=== PATIENT | female | born 1955 | race Two or more races ===

== ENCOUNTER 2019-06-23 08:27 | Inpatient (IN) | payer OTHER ==
[~2019-06-23] VITALS: Ht 172.7 cm; Wt 108.9 kg
[2019-06-23] MEDS ORDERED: MIDAZOLAM HCL 2 MG/2ML VIAL ONE (09:56)
[2019-06-23] MEDS ORDERED: FENTANYL PF 250MCG/5ML AMPUL ONE (09:57)
[2019-06-23] MEDS ORDERED: FENTANYL PF 100MCG/2ML AMPUL ONE (09:58)
[2019-06-23] MEDS ORDERED: HYDROMORPHONE INJ 2 MG/ML DISP.SYRIN ONE (09:59)
[2019-06-23] MEDS ORDERED: FAMOTIDINE/PF INJ 20 MG/2 ML VIAL IV ONE (10:00)
[2019-06-23] MEDS ORDERED: SUCCINYLCHOLINE CHLORIDE 20 MG/ML VIAL ONE (10:00)
[2019-06-23] MEDS ORDERED: ROCURONIUM BROMIDE 50 MG/5 ML ONE (10:01)
[2019-06-23] MEDS ORDERED: HEPARIN SODIUM, PORCINE 5000 UNITS/1 ML VIAL ONE (10:26)
[2019-06-23] MEDS ORDERED: BACITRACIN 50000 UNITS/VIAL ONE ×2 (10:27→14:01)
[2019-06-23] MEDS ORDERED: GELATIN SPONGE,ABSORBABLE 1 EA SPONGE TP ONE (10:27)
[2019-06-23] MEDS ORDERED: ANESTHESIA TRAY IN PYXIS 1 EA TRAY MC ONE (10:27)
[2019-06-23] MEDS ORDERED: HEMOSTATIC MATRIX 10 ML 1 EACH PAD MC ONE (10:27)
[2019-06-23] MEDS ORDERED: BUPIVACAINE 0.25% 75 MG/30 ML VIAL ONE (10:36)
[2019-06-23] MEDS ORDERED: BETA ACET/BET NA PHOS MDV 6 MG/ML VIAL ONE (10:37)
[2019-06-23] MEDS ORDERED: THROMBIN 20000 UNIT TP ONE (12:00)
[2019-06-23] MEDS ORDERED: LIDOCAINE 1% INJ 50 ML MDV IJ ONE (15:14)
[2019-06-23] MEDS ORDERED: SENNOSIDES 8.6 MG TABLET PO PRN (15:30)
[2019-06-23] MEDS ORDERED: CYCLOBENZAPRINE 10 MG TABLET PO PRN (15:30)
[2019-06-23] MEDS ORDERED: diphenhydrAMINE HCL 25 MG CAPSULE PO PRN (15:30)
[2019-06-23] MEDS ORDERED: ACETAMINOPHEN 325 MG TABLET PO PRN (15:30)
[2019-06-23] MEDS ORDERED: DOCUSATE SODIUM 250 MG CAPSULE PO PRN (15:30)
[2019-06-23] MEDS ORDERED: HYDROCODONE/APAP 10/325MG 1 EA TABLET PO PRN (16:00)
[2019-06-23] MEDS ORDERED: HYDROMORPHONE 1 MG/1 ML DISP.SYRIN ONE (16:18)
[2019-06-23] MEDS ORDERED: ONDANSETRON HCL/PF 4 MG/2 ML VIAL ONE (16:37)
[2019-06-23] MEDS ORDERED: METF-440 PO (17:13)
[2019-06-23] MEDS ORDERED: GLIP5TAB13 PO (17:13)
[2019-06-23] MEDS ORDERED: METF-442 PO (17:13)
[2019-06-23 17:30] VITALS: BP 144/82
[2019-06-23] MEDS ORDERED: DEXTROSE 50%-WATER 50 ML DISP.SYRIN IV PRN (17:30)
--- NOTE | 2019-06-23 17:30 | NUR ---
RECEIVED PT FROM DAY SX S/P C4-C7 ANTERIOR CERVICAL DISCECTOMY FUSION DONE BY LORETA RANKIN. PT IS COMFORTABLY SLEEPING BUT AROUSABLE AND VERBALLY RESPONSIVE.WITH O2 AT 2L/MIN VIA NC.O2 SAT 95%.WITH CLEAN AND DRY DRESSING ON HER LEFT ANTERIOR NECK EXTENDING TO HER CHEST AREA.WITH HEMOVAC DRAIN WITH THE AM0UNT OF ABOUT 5 ML.WITH ONGOING IVF NS INFUSING WELL(2ND BAG) TO LT AC.DENIES ANY PAIN BUT FEELS NAUSEOUS.ZOFRAN IV GIVEN PRN.ROOM ORIENTATION GIVEN AND THE USE OF CALL LIGHT.FAMILY MEMBERS AT THE BEDSIDE.CALL LIGHT PLACED WITHIN REACH.
[2019-06-23] MEDS: BLOOD SUGAR DIAGNOSTIC 1 EACH STRIP IN SCH ×2 (17:41→22:36)
[2019-06-23] MEDS: ONDANSETRON HCL/PF 4 MG/2 ML VIAL IVP PRN (18:04)
[2019-06-23] MEDS: IV NS 0.9% 1,000 ML IV PRN (18:04)
[2019-06-23] MEDS ORDERED: KEY,NONCONTROL,TO KEEP IN PYXI 1 EA MC ONE (18:20)
--- NOTE | 2019-06-23 18:27 | NUR ---
TECHNICAL SALES SUPPORT SPECIALIST PUMP HAS LOW BATTERY AND NEEDS TO BE CHARGED-IS CHARGING AT PRESENT.UNABLE TO START TECHNICAL SALES SUPPORT SPECIALIST DILAUDID. PT IS COMFORTABLY SLEEPING AT THIS TIME AFTER THE ZOFRAN IV WAS GIVEN DENIES ANY PAIN AT THIS TIME. CALLED [employer] FOR A NEW TECHNICAL SALES SUPPORT SPECIALIST PUMP. [employer] STAFF STATED THIS IS THE ONLY TECHNICAL SALES SUPPORT SPECIALIST PUMP THEY HAVE.AWAITING FOR THE TECHNICAL SALES SUPPORT SPECIALIST PUMP TO BE CHARGED.
--- NOTE | 2019-06-23 19:00 | NUR ---
NEW CUSTOMER LEADER PUMP WAS BROUGHT IN BY [employer] STAFF
[2019-06-23] MEDS: HYDROMORPHONE MDV 30 MG in IV NS 0.9% 15 ML, PCA TOTAL VOLUME 1 BAG IV PRN ×3 (19:04)
--- NOTE | 2019-06-23 19:20 | NUR ---
MS/RN OPENING NOTES PT RECEIVED ASLEEP, RESPONSIVE TO NAME AND TACTILE STIMULI. FAMILY AT BEDSIDE. ON 2LPM O2 VIA NC, BREATHING EVEN AND UNLABORED. NO S/S OF ACUTE RESPIRATORY DISTRESS NOTED. PT IS SLEEPY AND NO SIGNS OF PAIN NOTED AT THIS TIME. SURGICAL DRESSING TO LEFT ANTERIOR NECK C/D/I WITH HEMOVAC DRAINING SANGUINOUS FLUID. IV TO LAC RUNNING NS AT 80ML/HR AND PULP MAKING PLANT OPERATOR PUMP CONNECTED WITH HANDLE IN PT'S REACH. PULP MAKING PLANT OPERATOR PUMP IS PROGRAMMED FOR 0.2MG WITH LOCK OUT [id number]. PLACED IN SOFT CERVICAL COLLAR. HOB ELEVATED. BED IN LOW/LOCKED POSITION WITH CALL LIGHT IN REACH. BILAT. UPPER SIDE RAILS IN PLACE. WILL CONTINUE TO MONITOR
--- NOTE | 2019-06-23 19:40 | NUR ---
DR. REVELES AT BEDSIDE FOR EVALUATION OF PT. FAMILY AT BEDSIDE
[2019-06-23 20:00] VITALS: BP 151/89
[2019-06-23] MEDS ORDERED: HYDROCODONE/APAP 5/325MG 1 EACH TABLET PO PRN (20:00)
[2019-06-23] MEDS: METOCLOPRAMIDE HCL 10 MG/2 ML VIAL IV PRN (20:01)
--- NOTE | 2019-06-23 20:12 | NUR ---
MS/RN NOTES PT STILL WITH NAUSEA AND SOME VOMITING. EMESIS BAG PROVIDED, ADMINISTERED PRN REGLAN ORDERED. HOB ELEVATED FOR ASPIRATION PRECAUTIONS. WILL MONITOR FOR EFFECTIVENESS.
[2019-06-23 20:37] VITALS: BP 151/89
[2019-06-23] MEDS: FAMOTIDINE (20 MG) 20 MG TABLET PO SCH (21:00)
[2019-06-23] MEDS ORDERED: ZOLPIDEM TARTRATE 5 MG TABLET PO PRN (22:00)
[2019-06-23] MEDS ORDERED: DEXAMETHASONE SOD PHOSPHATE 10 MG/ML VIAL IV ONE (22:00)
[2019-06-23] MEDS: ANCEF 1 GM/50 ML D5W IV SCH ×2 (22:35)
[2019-06-23] MEDS: INSULIN REGULAR, HUMAN 100 UNIT/ML 3 ML VIAL SQ PRN (22:51)
[2019-06-24] MEDS: ONDANSETRON HCL/PF 4 MG/2 ML VIAL IVP PRN (00:28)
[2019-06-24 04:27] VITALS: BP 150/87
[2019-06-24] MEDS: ANCEF 1 GM/50 ML D5W IV SCH ×6 (05:35→20:26)
--- NOTE | 2019-06-24 05:47 | NUR ---
MS/RN NOTES DR. GRIFFIN AT BEDSIDE TO EVALUATE PT. WITH VERBAL ORDERS TO INCREASE ZOFRAN TO 8MG IV Q6H PRN NAUSEA/VOMITING. RN TO REMOVE HEMOVAC A COUPLE HOURS PRIOR TO DISCHARGE.
[2019-06-24] MEDS: METOCLOPRAMIDE HCL 10 MG/2 ML VIAL IV PRN ×2 (06:29→16:51)
[2019-06-24] MEDS: BLOOD SUGAR DIAGNOSTIC 1 EACH STRIP IN SCH ×4 (06:35→21:48)
[2019-06-24] MEDS: INSULIN REGULAR, HUMAN 100 UNIT/ML 3 ML VIAL SQ PRN ×4 (06:36→21:50)
[2019-06-24 07:21] LABS: BASOPHILS % (AUTO) 0.2 % (0.0-2.0); HEMATOCRIT 42 % (33-45); HEMOGLOBIN 13.8 g/dL (11.5-14.8); LYMPHOCYTES # (AUTO) 0.7 /CMM (0.8-4.8); LYMPHOCYTES % (AUTO) 6.6 % (20.0-44.0); MEAN CORPUSCULAR HGB CONC 33 g/dl (31.0-36.0); MEAN CORPUSCULAR VOLUME 87 fL (82-100); MONOCYTES # (AUTO) 0.1 /CMM (0.1-1.30); MONOCYTES % (AUTO) 1.3 % (2.0-12.0); NEUTROPHILS # (AUTO) 9.6 /CMM (1.8-8.9); NEUTROPHILS % (AUTO) 91.9 % (43.0-81.0); PLATELET COUNT (AUTO) 236 /CMM (150-450); RED BLOOD CELL COUNT(AUTO) 4.74 MIL/uL (4.0-5.2); WHITE BLOOD COUNT (AUTO) 10.4 K/uL (4.3-11.0)
[2019-06-24 07:30] VITALS: BP 157/86
[2019-06-24 07:34] LABS: CALCIUM, SERUM 8.6 mg/dL (8.5-10.1); CREATININE 0.7 mg/dL (0.6-1.3); MAGNESIUM 1.8 mg/dL (1.8-2.4); POTASSIUM 4.3 mmol/L (3.5-5.1)
--- NOTE | 2019-06-24 07:53 | NUR ---
MS/RN CLOSING NOTES PT ASLEEP, RESPONSIVE TO NAME. A/OX3. ON 2LPM O2 VIA NC, BREATHING EVEN AND UNLABORED. HOB ELEVATED. ON/OFF NAUSEOUS AND VOMITING DURING SHIFT. PRN ANTI EMETICS ADMINISTERED ORDERED. SOFT CERVICAL NECK COLLAR IN PLACE. SURGICAL LEFT NECK DRESSING C/D/I WITH HEMOVAC CONNECTED, 25ML OUTPUT AT THE END OF SHIFT. LAC PATENT AND INTACT RUNNING IVF ORDERED. PT ENCOURAGED TO USE TICKET DISPATCHER PUMP THROUGHOUT SHIFT, PT PUSHED X3 WITH A TOTAL ADMINISTRATION DOSE OF 0.6MG OF DILAUDID. KEPT PT COMFORTABLE POSSIBLE THROUGHOUT SHIFT. ALL NEEDS MET AND ANTICIPATED. BED IN LOW/LOCKED POSITION WITH CALL LIGHT IN REACH. SIDE RAILS UPX3 AND BED ALARM ON FOR SAFETY. ENDORSED TO DAY SHIFT VICENTA CAVAZOS.
[2019-06-24 08:00] VITALS: BP 157/86
--- NOTE | 2019-06-24 08:00 | NUR ---
MS/RN AM NOTES PT A/OX3. ON 2LPM O2 VIA NC, BREATHING EVEN AND UNLABORED. HOB ELEVATED. C/O FEELING NAUSEOUS BUT NO VOMITING NOTED. ZOFRAN PRN ADMINISTERED ORDERED. SOFT CERVICAL NECK COLLAR IN PLACE. SURGICAL LEFT NECK DRESSING C/D/I WITH HEMOVAC CONNECTED, 25ML OUTPUT AT THE END OF SHIFT. LAC PATENT AND INTACT RUNNING IVF ORDERED. PT ENCOURAGED TO USE CASHIER CLERK PUMP THROUGHOUT SHIFT, PT PUSHED X 2X THIS MORNING.KEPT PT COMFORTABLE. BED IN LOW/LOCKED POSITION WITH CALL LIGHT IN REACH. SIDE RAILS UPX3 AND BED ALARM ON FOR SAFETY.
--- NOTE | 2019-06-24 08:10 | NUR ---
ON ROOM AIR WITH O2 SAT 94%. AMBULATED WITH P.T. TOLERATING WELL. AWAITING FOR OT EVAL.
[2019-06-24] MEDS: DEXAMETHASONE SOD PHOSPHATE 4 MG/ML VIAL IV SCH ×2 (08:55→16:57)
[2019-06-24] MEDS: ONDANSETRON HCL/PF 4 MG/2 ML VIAL IV PRN ×2 (08:55→16:50)
[2019-06-24] MEDS: FAMOTIDINE (20 MG) 20 MG TABLET PO SCH ×2 (09:00→20:26)
[2019-06-24] MEDS: IV NS 0.9% 1,000 ML IV PRN (09:15)
[2019-06-24 16:00] VITALS: BP 100/61
--- NOTE | 2019-06-24 17:18 | NUR ---
PT /FAMILY TEACHING DONE REGARDING USE OF INSULIN GLARGINE(LONG ACTING INSULIN).PT VERBALIZED THAT HER PMD STOPPED HER INSULIN GLARGINE DUE TO SX. EMPHASIZED THE IMPORTANCE OF DOING A FOLLOW UP WITH HER PMD POST DISCHARGE.
--- NOTE | 2019-06-24 18:59 | NUR ---
PT RESTING IN BED WITH SOFT COLLAR IN BED.WITH FAMILY AT BEDSIDE.DENIES PAIN OR NAUSEA.HEMOVAC OUTPUT 50 ML SEROSANGUINOUS DRAINAGE. CALL LIGHT PLACED WITHIN REACH.
--- NOTE | 2019-06-24 19:30 | NUR ---
MS RN OPENING NOTES RECEIVED PATIENT FROM MORNING SHIFT, ALERT AND ORIENTED X 3 WITH NO DISTRESS NOTED. VERBALLY RESPONSIVE. BREATHING REGULAR AND UNLABORED WITH OXYGEN AT 2L/MIN VIA NASAL CANNULA. SOFT CERVICAL COLLAR ON WITH LEFT NECK SURGICAL DRESSING CLEAN AND INTACT. HEMOVAC INTACT DRAINING SEROSANGUINEOUS OUTPUT. LEFT AC G18 IV INTACT AND PATENT INFUSING WELL WITH NO BLEEDING OR S/S OF INFILTRATION/INFECTION. CALL LIGHT IN REACH, BED LOW AND LOCKED. WILL CONTINUE TO MONITOR.
[2019-06-24 20:00] VITALS: BP 148/76
[2019-06-24] MEDS ORDERED: KEY,NONCONTROL,TO KEEP IN PYXI 1 EA MC ONE (20:43)
[2019-06-24] MEDS: HYDROMORPHONE MDV 30 MG in IV NS 0.9% 15 ML, PCA TOTAL VOLUME 1 BAG IV PRN ×3 (20:50)
[2019-06-24] MEDS ORDERED: INSULIN GLARGINE, 100 UNIT/ML CARTRIDGE SQ SCH (22:00)
[2019-06-25] MEDS: IV NS 0.9% 1,000 ML IV PRN (00:24)
[2019-06-25] MEDS: DEXAMETHASONE SOD PHOSPHATE 4 MG/ML VIAL IV SCH ×2 (00:24→08:51)
[2019-06-25] MEDS: ANCEF 1 GM/50 ML D5W IV SCH ×4 (04:07→12:12)
--- NOTE | 2019-06-25 06:30 | NUR ---
MS RN CLOSING NOTES PATIENT IN BED, ALERT AND ORIENTED X 3 WITH NO DISTRESS NOTED. VERBALLY RESPONSIVE. BREATHING REGULAR AND UNLABORED WITH OXYGEN AT 2L/MIN VIA NASAL CANNULA. ON CONTINUOS PULSE OXIMETRY MONITORING; LATEST SPO2 95%. SOFT CERVICAL COLLAR ON WITH LEFT NECK SURGICAL DRESSING CLEAN AND INTACT. HEMOVAC INTACT DRAINING SEROSANGUINEOUS OUTPUT IN SCANT AMOUNT (10cc). LEFT AC G18 IV INTACT AND PATENT INFUSING WELL WITH NO BLEEDING OR S/S OF INFILTRATION/INFECTION. LATEST BLOOD SUGAR OF 350mg/dl NOTED; INSULIN PER SLIDING SCALE GIVEN SQ. CONTINUOUSLY MONITORED FOR S/S OF HYPOGLYCEMIA. SNACKS PROVIDED.CALL LIGHT IN REACH, BED LOW AND LOCKED. WILL ENDORSE TO MORNING SHIFT FOR DIRK.
[2019-06-25] MEDS: BLOOD SUGAR DIAGNOSTIC 1 EACH STRIP IN SCH ×2 (06:46→12:12)
[2019-06-25] MEDS: INSULIN REGULAR, HUMAN 100 UNIT/ML 3 ML VIAL SQ PRN ×2 (06:49→12:14)
[2019-06-25 08:00] VITALS: BP 137/70
--- NOTE | 2019-06-25 08:00 | NUR ---
MS RN OPENING NOTES RECEIVED PATIENT ALERT AND ORIENTED X 3 WITH NO PAIN OR DISTRESS NOTED. VERBALLY RESPONSIVE. BREATHING REGULAR AND UNLABORED. O2 SAT 88-94%ON ROOM AIR BUT IN NO DISTRESS. USES INCENTIVE SPIROMETER AND COUGHED OUT SECRETIONS.SOFT CERVICAL COLLAR ON WITH LEFT NECK SURGICAL DRESSING CLEAN AND INTACT. ATE 100% BREAKFAST. HEMOVAC INTACT DRAINING SEROSANGUINEOUS OUTPUT. LEFT AC G18 IV INTACT AND PATENT IVF NS INFUSING WELL WITH NO BLEEDING OR S/S OF INFILTRATION/INFECTION. CALL LIGHT IN REACH, BED LOW AND LOCKED. WILL CONTINUE TO MONITOR.
[2019-06-25] MEDS: ONDANSETRON HCL/PF 4 MG/2 ML VIAL IV PRN (08:50)
[2019-06-25] MEDS: FAMOTIDINE (20 MG) 20 MG TABLET PO SCH (08:51)
--- NOTE | 2019-06-25 11:27 | NUR ---
DC'D SALVAGE WINDER DILAUDID AND WASTED 22 ML OF DILAUDID WITNESSED BY [facility] REPRESENTATIVE NURSE.
--- NOTE | 2019-06-25 16:17 | NUR ---
DISCHARGED PT HOME WITH STABLE V/S.WOUND VAC TO LEFT NECK REMOVED WITH NO BLEEDING NOTED.IV H/L REMOVED TO LT AC WITH NO BLEEDING OR SWELLING NOTED ON THE SITE..PT TOLERATED WELL. LEFT NECK SURGICAL INCISION SITE HAS STERI STRIPS INTACT WITH NO S/S OF INFECTION AND REMAINS CLEAN AND DRY.DISCHARGE INSTRUCTIONS,FOLLOW UP AND PRESCRIPTIONS GIVEN TO THE PT.PROVIDED FWW,CERVICAL BOTH SOFT AND HARD HANDED TO THE PT. NO S/S OF HYPO/HYPERGLYCEMIA. DISCHARGED HOME ACCOMPANIED BY HER DAUGHTERS,DENYING ANY PAIN OR DISTRESS.
[2019-06-26] MEDS ORDERED: DEXAMETHASONE SOD PHOSPHATE 4 MG/ML VIAL IV SCH (09:00)
== END 2019-06-25 16:30 | disposition home or self-care (01) | DRG 473 ==
LOC: DS 08:27 → MED 14:34
PROVIDERS: ADMIT Nurse Practitioner Acute Care; ATTEND Nurse Practitioner Acute Care
PROC: 0RB30ZZ Excision of Cervical Vertebral Disc, Open Approach (ICD-10-PCS; principal; 2019-06-23)
PROC: 07DR3ZX Extraction of Iliac Bone Marrow, Percutaneous Approach, Diagnostic (ICD-10-PCS; principal; 2019-06-23)
PROC: 0MBC0ZZ Excision of Upper Spine Bursa and Ligament, Open Approach (ICD-10-PCS; 2019-06-23)
PROC: 01N10ZZ Release Cervical Nerve, Open Approach (ICD-10-PCS; 2019-06-23)
PROC: 00NW0ZZ Release Cervical Spinal Cord, Open Approach (ICD-10-PCS; 2019-06-23)
PROC: 0RG20A0 Fusion of 2 or more Cervical Vertebral Joints with Interbody Fusion Device, Anterior Approach, Anterior Column, Open Approach (ICD-10-PCS; 2019-06-23)
DX: M47.22 Other spondylosis with radiculopathy, cervical region (principal); G56.03 Carpal tunnel syndrome, bilateral upper limbs; E11.9 Type 2 diabetes mellitus without complications; E66.9 Obesity, unspecified; Z68.36 Body mass index [BMI] 36.0-36.9, adult; Z82.49 Family history of ischemic heart disease and other diseases of the circulatory system; Z79.84 Long term (current) use of oral hypoglycemic drugs; M48.02 Spinal stenosis, cervical region; G96.12 Meningeal adhesions (cerebral) (spinal)
CPT/HCPCS: 36415; 72040-TC; 80048-TC; 82962-TC; 83735-TC; 85025-TC; 86850-TC; 86921-TC; 87081-TC; 97110-TC; 97112-TC; 97116-TC; 97530-TC; 97535-TC; A4216; A6403; G0378; J0330; J0690; J0702; J1100; J1170; J1644; J1815; J2250; J2405; J2704; J2765; J3010; J3490; J7030; J7050; J7060